=== PATIENT | female | born 1975 | race Caucasian/White ===

== ENCOUNTER → 2018-06-11 | Outpatient (CLI) | payer BC ==
--- NOTE | 2018-06-12 08:58 | MM ---
Reason for exam: screening (asymptomatic). Baseline mammogram. Physical Findings: Nurse did not find any significant physical abnormalities on exam. MG 3D Screening Mammo W/Cad Bilateral CC and MLO view(s) were taken. The breast tissue is heterogeneously dense. This may lower the sensitivity of mammography. There are benign appearing round calcifications in the right breast. Asymmetric breast tissue left inferior aspect. There is no discrete abnormality. These results were verbally communicated with the patient and result sheet given to the patient on 06/11/18. ASSESSMENT: Negative, BI-RAD 1 RECOMMENDATION: Routine screening mammogram of both breasts in 1 year.
== END | disposition home or self-care (01) ==
LOC: RADMAMWWP 13:48
PROVIDERS: ATTEND Pediatrics
DX: Z12.31 Encounter for screening mammogram for malignant neoplasm of breast (principal)
CPT/HCPCS: 77063; 77067

== ENCOUNTER → 2019-07-01 | Outpatient (CLI) | payer BC ==
--- NOTE | 2019-07-01 13:04 | MM ---
Reason for exam: screening (asymptomatic). Last mammogram was performed 1 year and 1 month ago. Physical Findings: A clinical breast exam by your physician is recommended on an annual basis and results should be correlated with mammographic findings. MG 3D Screening Mammo W/Cad Bilateral CC and MLO view(s) were taken. Prior study comparison: June 11, 2018, bilateral MG 3d screening mammo w/cad. The breast tissue is extremely dense which could obscure a lesion on mammography. There are round oval circumscribed bilateral masses. No prior ultrasound. There are scattered multiple bilateral masses. Bilateral ultrasound will be done to ensure cystic nature. No suspicious abnormality. ASSESSMENT: Incomplete: need additional imaging evaluation, BI-RAD 0 RECOMMENDATION: Ultrasound of both breasts. [facility] will attempt to contact patient to return for ultrasound.
== END | disposition home or self-care (01) ==
LOC: RADMAMWWP 09:42
PROVIDERS: ATTEND Pediatrics
DX: Z12.31 Encounter for screening mammogram for malignant neoplasm of breast (principal)
CPT/HCPCS: 77063; 77067

== ENCOUNTER → 2019-07-08 | Outpatient (CLI) | payer BC ==
--- NOTE | 2019-07-08 11:55 | USB ---
Reason for exam: additional evaluation requested from abnormal screening. Physical Findings: Nurse Summary: bilateral fibrocystic, movable (nurse mj). US Breast BILAT Right complete breast ultrasound includes all four quadrants, the retroareolar region and axilla. Finding demonstrates a 0.6 x 0.4 x 0.5cm cystic cluster at 8 o'clock, a 0.9 x 0.6 x 0.9cm cystic cluster at 10 o'clock and a 1.8 x 1.0 x 1.7cm cystic lesion at 11 o'clock. Left complete breast ultrasound includes all four quadrants, the retroareolar region and axilla. Finding demonstrates a 1.0 x 0.9 x 0.9cm mixed cyst with retracted debris at 1 o'clock, a 2.7 x 1.1 x 2.7cm cystic lesion at 2 o'clock and a 1.4 x 0.9 x 1.4cm cystic cluster at 3 o'clock. These results were verbally communicated with the patient and result sheet given to the patient on 07/08/19. ASSESSMENT: Benign, BI-RAD 2 RECOMMENDATION: Return to routine screening mammogram schedule for both breasts.
--- NOTE | 2019-07-09 11:09 | USB ---
Reason for exam: additional evaluation requested from abnormal screening. Physical Findings: Nurse Summary: bilateral fibrocystic, movable (nurse mj). US Breast Workup DENNISE Right complete breast ultrasound includes all four quadrants, the retroareolar region and axilla. Finding demonstrates a 0.6 x 0.4 x 0.5cm cystic cluster at 8 o'clock, a 0.9 x 0.6 x 0.9cm cystic cluster at 10 o'clock and a 1.8 x 1.0 x 1.7cm cystic lesion at 11 o'clock. Left complete breast ultrasound includes all four quadrants, the retroareolar region and axilla. Finding demonstrates a 1.0 x 0.9 x 0.9cm mixed cyst with retracted debris at 1 o'clock, a 2.7 x 1.1 x 2.7cm cystic lesion at 2 o'clock and a 1.4 x 0.9 x 1.4cm cystic cluster at 3 o'clock. These results were verbally communicated with the patient and result sheet given to the patient on 07/08/19. ASSESSMENT: Benign, BI-RAD 2 RECOMMENDATION: Return to routine screening mammogram schedule for both breasts.
== END | disposition home or self-care (01) ==
LOC: RADUSWWP 10:06
PROVIDERS: ATTEND Pediatrics
DX: R92.8 Other abnormal and inconclusive findings on diagnostic imaging of breast (principal)

== ENCOUNTER → 2020-07-27 | Outpatient (CLI) | payer BC ==
--- NOTE | 2020-07-27 14:56 | MM ---
Reason for exam: additional evaluation requested from prior study. Last mammogram was performed 1 year and 1 month ago. History: Patient has history of other cancer at age 41. Physical Findings: Nurse did not find any significant physical abnormalities on exam. MG 3D Diag Mammo W/Cad DENNISE Bilateral CC and MLO view(s) were taken. Prior study comparison: July 01, 2019, bilateral MG 3d screening mammo w/cad. June 11, 2018, bilateral MG 3d screening mammo w/cad. The breast tissue is heterogeneously dense. This may lower the sensitivity of mammography. No significant new findings when compared with previous films. These results were verbally communicated with the patient and result sheet given to the patient on 07/27/20. ASSESSMENT: Benign, BI-RAD 2 RECOMMENDATION: Routine screening mammogram of both breasts in 1 year.
== END | disposition home or self-care (01) ==
LOC: RADMAMWWP 14:12
PROVIDERS: ATTEND Pediatrics
DX: R92.8 Other abnormal and inconclusive findings on diagnostic imaging of breast (principal)
CPT/HCPCS: 77062; 77066

== ENCOUNTER → 2021-10-04 | Outpatient (CLI) | payer BC ==
--- NOTE | 2021-10-05 12:03 | MM ---
Reason for exam: screening (asymptomatic). Last mammogram was performed 1 year and 2 months ago. History: Patient has history of other cancer at age 41. Physical Findings: A clinical breast exam by your physician is recommended on an annual basis and results should be correlated with mammographic findings. MG 3D Screening Mammo W/Cad Bilateral CC and MLO view(s) were taken. Prior study comparison: July 27, 2020, bilateral MG 3d diag mammo w/cad DENNISE. July 01, 2019, bilateral MG 3d screening mammo w/cad. The breast tissue is heterogeneously dense. This may lower the sensitivity of mammography. Finding: There is a 12 mm circumscribed round mass located 5 cm from the nipple in the posterior, central position of the left breast. There is a 14mm density in the left breast posterior upper outer quadrant towards axilla. ASSESSMENT: Incomplete: need additional imaging evaluation, BI-RAD 0 RECOMMENDATION: Ultrasound of the left breast. (posterior central and upper outer quadrant) [facility] will attempt to contact patient to return for ultrasound.
== END | disposition home or self-care (01) ==
LOC: RADMAMWWP 10:37
PROVIDERS: ATTEND Pediatrics
DX: Z12.31 Encounter for screening mammogram for malignant neoplasm of breast (principal)
CPT/HCPCS: 77063; 77067

== ENCOUNTER → 2021-10-23 | Outpatient (CLI) | payer BC ==
--- NOTE | 2021-10-23 09:52 | USB ---
Reason for exam: additional evaluation requested from abnormal screening. History: Patient has history of other cancer at age 41. Physical Findings: Nurse did not find any significant physical abnormalities on exam. US Breast Workup Limited LT Left limited breast ultrasound including focal area of concern, retroareolar and axilla demonstrates a 1.2 x 0.9 x 0.9cm cystic lesion at 2 o'clock, a 1.5 x 0.9 x 1.2cm cystic lesion at 4 o'clock and a 1.1 x 0.9 x 1.0cm cystic lesion at the nipple. These results were verbally communicated with the patient and result sheet given to the patient on 10/23/21. ASSESSMENT: Benign, BI-RAD 2 RECOMMENDATION: Follow-up diagnostic mammogram of the left breast in 6 months.
== END | disposition home or self-care (01) ==
LOC: RADUSWWP 08:13
PROVIDERS: ATTEND Pediatrics
DX: R92.8 Other abnormal and inconclusive findings on diagnostic imaging of breast (principal)

== ENCOUNTER → 2022-04-06 | Outpatient (CLI) | payer BC ==
--- NOTE | 2022-04-06 15:50 | USB ---
Reason for Exam: Follow-up at short interval from prior study. Patient History: Menarche at age 14. First Full-Term at age 32. Late child-bearing (after 30). Other cancer, age 41. Risk Values: Dottie 5 year model risk: 1.1%. NCI Lifetime model risk: 13.1%. Prior Study Comparison: 07/01/2019 Bilateral Screening Mammogram, [facility]. 07/27/2020 Bilateral Diagnostic Mammogram, [facility]. 10/04/2021 Bilateral Screening Mammogram, [facility]. Findings: The upper outer quadrant of the left breast, the axilla of the left breast and the retroareolar of the left breast were scanned. No solid masses are identified..Multiple cysts seen throughout with largest measured. Left 1200 2 cfn= 1.0 x 1.1 x 0.8 cm with internal echoes Left 400 5 cfn= 2.0 x 1.9 x 0.9 cm. Overall Assessment: Probably benign, BI-RAD 3 Management: Diagnostic Breast Ultrasound of the left breast in 6 months. A clinical breast exam by your physician is recommended on an annual basis and results should be correlated with mammographic findings. Electronically signed and approved by: Hung Angela M.D. Radiologis
== END | disposition home or self-care (01) ==
LOC: RADUSWWP 08:14
PROVIDERS: ATTEND Pediatrics
DX: Z12.31 Encounter for screening mammogram for malignant neoplasm of breast (principal); R92.8 Other abnormal and inconclusive findings on diagnostic imaging of breast

== ENCOUNTER → 2022-12-05 | Outpatient (CLI) | payer BC ==
--- NOTE | 2022-12-05 14:18 | USB ---
Reason for Exam: Additional evaluation requested from abnormal screening. Patient History: Menarche at age 14. First Full-Term at age 32. Late child-bearing (after 30). Premenopausal. Patient has history of breast feeding. Other cancer, age 41. Risk Values: Dottie 5 year model risk: 1.1%. NCI Lifetime model risk: 13.0%. Technique: Method: Whole Breast Handheld. Prior Study Comparison: 07/01/2019 Bilateral Screening Mammogram, [facility]. 07/27/2020 Bilateral Diagnostic Mammogram, [facility]. 10/04/2021 Bilateral Screening Mammogram, [facility]. Findings: The whole breast of the left breast, the axilla of the left breast and the retroareolar of the left breast were scanned. A complete ultrasound of the left breast with additional evaluation of the nipple and axilla was performed. Multiple simple-appearing cyst demonstrated within the left breast. There are 2 hypoechoic lesions within the left breast at 9:00 2 cm from the nipple measuring 0.9 x 1.0 x 1.0 cm and at 12:00 2 cm from the nipple measuring 1.7 x 0.9 x 1.0 cm. These demonstrate posterior acoustic enhancement without internal color flow and may represent debris-filled cysts. Overall Assessment: Probably benign, BI-RAD 3 Management: Diagnostic Breast Ultrasound of the left breast in 6 months. A clinical breast exam by your physician is recommended on an annual basis and results should be correlated with mammographic findings. This exam should not preclude additional follow-up of suspicious palpable abnormalities. Results were given to the patient verbally at the time of exam. Electronically signed and approved by: Chris Dickson D.O.
--- NOTE | 2022-12-05 15:32 | MM ---
Reason for Exam: Additional evaluation requested from prior study. Last mammogram was performed 1 year(s) and 2 month(s) ago. Patient History: Menarche at age 14. First Full-Term at age 32. Late child-bearing (after 30). Premenopausal. Patient has history of breast feeding. Other cancer, age 41. Last menstrual period: 12/02/2022 Risk Values: Dottie 5 year model risk: 1.1%. NCI Lifetime model risk: 13.0%. Prior Study Comparison: 06/11/2018 Bilateral Screening Mammogram, [facility]. 07/01/2019 Bilateral Screening Mammogram, [facility]. 07/27/2020 Bilateral Diagnostic Mammogram, [facility]. 10/04/2021 Bilateral Screening Mammogram, [facility]. Tissue Density: The breast tissue is extremely dense which could obscure a lesion on mammography. Findings: Analyzed By CAD. No suspicious mass within the right breast. Multiple round partially obscured masses are redemonstrated within the left breast. Benign-appearing calcification within the right breast. No suspicious group of calcifications within either breast. No architectural distortion within either breast. Overall Assessment: Incomplete: need additional imaging evaluation, BI-RAD 0 Management: Diagnostic Breast Ultrasound of the left breast. A clinical breast exam by your physician is recommended on an annual basis and results should be correlated with mammographic findings. This exam should not preclude additional follow-up of suspicious palpable abnormalities. Results were given to the patient verbally at the time of exam. Electronically signed and approved by: Chris Dickson D.O.
== END | disposition home or self-care (01) ==
LOC: RADMAMWWP 12:43
PROVIDERS: ATTEND Pediatrics
DX: R92.8 Other abnormal and inconclusive findings on diagnostic imaging of breast (principal)
CPT/HCPCS: 77062; 77066

== ENCOUNTER → 2023-06-19 | Outpatient (CLI) | payer BC ==
--- NOTE | 2023-06-19 14:43 | MM ---
Reason for Exam: Follow-up at short interval from prior study. Last screening mammogram was performed 6 month(s) ago. Patient History: Menarche at age 14. First Full-Term at age 32. Late child-bearing (after 30). Premenopausal. Patient has history of breast feeding. Other cancer, age 41. Risk Values: Dottie 5 year model risk: 1.1%. NCI Lifetime model risk: 13.0%. Prior Study Comparison: 07/27/2020 Bilateral Diagnostic Mammogram, [facility]. 10/04/2021 Bilateral Screening Mammogram, [facility]. 12/05/2022 Bilateral MG 3D diag mammo w/cad DENNISE, [facility]. Tissue Density: Left: The breast tissue is extremely dense which could obscure a lesion on mammography. Findings: Analyzed By CAD. Pattern appears stable. Changes are evident. No suspicious groups of microcalcifications, spiculated or lobular masses, architectural distortion or other secondary signs of malignancy are mammographically apparent. Overall Assessment: Benign, BI-RAD 2 Management: Screening Mammogram of both breasts in 6 months. A negative mammogram report should not preclude additional follow up of suspicious palpable abnormalities. Patient should continue monthly self breast exam. A clinical breast exam by your physician is recommended on an annual basis and results should be correlated with mammographic findings. Electronically signed and approved by: Chidi Be D.O. Radiologis
--- NOTE | 2023-06-19 15:26 | USB ---
Reason for Exam: Follow-up at short interval from prior study. Patient History: Menarche at age 14. First Full-Term at age 32. Late child-bearing (after 30). Premenopausal. Patient has history of breast feeding. Other cancer, age 41. Risk Values: Dottie 5 year model risk: 1.1%. NCI Lifetime model risk: 13.0%. Technique: Method: Whole Breast Handheld. Prior Study Comparison: 07/27/2020 Bilateral Diagnostic Mammogram, [facility]. 10/04/2021 Bilateral Screening Mammogram, [facility]. 12/05/2022 Left US breast LT, [facility]. 12/05/2022 Bilateral MG 3D diag mammo w/cad DENNISE, [facility]. Findings: The whole breast of the left breast, the axilla of the left breast and the retroareolar of the left breast were scanned. There is a complex cyst within the left breast 12:00 position 2 cm from the nipple. This measures 1.4 x 0.9 x 1.0 cm. This was present previously. Previous measurements 1.7 x 0.9 x 1.0 cm. Overall Assessment: Probably benign, BI-RAD 3 Management: Diagnostic Breast Ultrasound of the left breast in 6 months. A clinical breast exam by your physician is recommended on an annual basis and results should be correlated with mammographic findings. This exam should not preclude additional follow-up of suspicious palpable abnormalities. Results were given to the patient verbally at the time of exam. Electronically signed and approved by: Chidi Be D.O. Radiologis
== END | disposition home or self-care (01) ==
LOC: RADMAMWWP 13:46
PROVIDERS: ATTEND Pediatrics
DX: R92.342 Mammographic extreme density, left breast (principal)
CPT/HCPCS: 77061; 77065

== ENCOUNTER → 2023-12-26 | Outpatient (CLI) | payer BC ==
--- NOTE | 2023-12-26 07:46 | MM ---
Reason for Exam: Follow-up at short interval from prior study. Last mammogram was performed 1 year(s) and 1 month(s) ago. Patient History: Menarche at age 14. First Full-Term at age 32. Late child-bearing (after 30). Premenopausal. Patient has history of breast feeding. Other cancer, age 41. Last menstrual period: 12/19/2023 Risk Values: Dottie 5 year model risk: 1.2%. NCI Lifetime model risk: 12.8%. Prior Study Comparison: 06/11/2018 Bilateral Screening Mammogram, [facility]. 07/01/2019 Bilateral Screening Mammogram, [facility]. 07/08/2019 Bilateral Diagnostic Ultrasound, [facility]. 07/27/2020 Bilateral Diagnostic Mammogram, [facility]. 10/04/2021 Bilateral Screening Mammogram, [facility]. 10/23/2021 Left Diagnostic Ultrasound, [facility]. 04/06/2022 Left US breast limited LT, [facility]. 12/05/2022 Left US breast LT, [facility]. 12/05/2022 Bilateral MG 3D diag mammo w/cad DENNISE, [facility]. 06/19/2023 Left MG 3D diag mammo w/cad LT, [facility]. 06/19/2023 Left US breast LT, [facility]. Tissue Density: The breasts are extremely dense, which lowers the sensitivity of mammography. Findings: Analyzed By CAD. The pattern is symmetrical. There is a 2.2 cm rounded density with partially obscured margins located 2.6 cm nipple upper outer quadrant left middle breast. This may be an enlarging cyst. Additional workup with ultrasound is recommended. No additional suspicious underlying mass is evident. No suspicious groups of microcalcifications, spiculated or lobular masses, architectural distortion or other secondary signs of malignancy are mammographically apparent. Overall Assessment: Incomplete: need additional imaging evaluation, BI-RAD 0 Management: Diagnostic Breast Ultrasound of the left breast. A negative mammogram report should not preclude additional follow up of suspicious palpable abnormalities. Patient should continue monthly self breast exam. A clinical breast exam by your physician is recommended on an annual basis and results should be correlated with mammographic findings. Note on Dottie scores and lifetime risk: 1. A Dottie score greater than 3% is considered moderate risk. If this is the case, consider specialist referral to assess eligibility for a risk reducing agent. 2. If overall lifetime risk for the development of breast cancer is 20% or higher, the patient may qualify for future screening with alternating mammogram and breast MRI. Electronically signed and approved by: Chidi Be D.O. Radiologis
--- NOTE | 2023-12-26 08:40 | USB ---
Reason for Exam: Follow-up at short interval from prior study. Patient History: Menarche at age 14. First Full-Term at age 32. Late child-bearing (after 30). Premenopausal. Patient has history of breast feeding. Other cancer, age 41. Risk Values: Dottie 5 year model risk: 1.2%. NCI Lifetime model risk: 12.8%. Technique: Method: Whole Breast Handheld. Prior Study Comparison: 10/04/2021 Bilateral Screening Mammogram, [facility]. 12/05/2022 Bilateral MG 3D diag mammo w/cad DENNISE, [facility]. 06/19/2023 Left MG 3D diag mammo w/cad LT, [facility]. Findings: The whole breast of the left breast, the axilla of the left breast and the retroareolar of the left breast were scanned. There is a stable appearing solid round area measuring 1.0 x 0.8 cm. There is a small tail which is less well visualized on this examination. There are multiple simple appearing cysts present. 2:00 position this may have enlarged. 2:00 lobular cyst may 2.5 cm in size. Additional simple appearing cysts are present scattered throughout the breasts. Overall Assessment: Benign, BI-RAD 2 Management: Screening Mammogram of both breasts in 1 year. A clinical breast exam by your physician is recommended on an annual basis and results should be correlated with mammographic findings. This exam should not preclude additional follow-up of suspicious palpable abnormalities. Results were given to the patient verbally at the time of exam. Electronically signed and approved by: Chidi Be D.O. Radiologis
== END | disposition home or self-care (01) ==
LOC: RADMAMWWP 07:19
PROVIDERS: ATTEND Pediatrics
DX: N60.12 Diffuse cystic mastopathy of left breast (principal); R92.343 Mammographic extreme density, bilateral breasts
CPT/HCPCS: 77062; 77066